=== PATIENT | female | born 1970 | race Hispanic/Latino ===

== ENCOUNTER 2018-04-30 05:58 | Outpatient (CLI) | payer OTHER ==
[2018-04-30 07:30] LABS: Blood Urea Nitrogen 14 mg/dL (7-17)
--- NOTE | 2018-04-30 13:26 | Cat Scan Report ---
FINAL REPORT EXAM: CT ABDOMEN PELVIS WO/W CON HISTORY: HX OF CHRONIC HEP C WITH ELEVATED LFT'S TECHNIQUE: CT of the abdomen and pelvis without and with IV contrast. Coronal and sagittal reconstru cted imaging provided. PRIORS: None currently available. FINDINGS: ABDOMEN: Liver: Heterogeneous decreased attenuation. No distinct lesion. No abnormal enhancement. Gallbladder, stomach, spleen, pancreas, and adrenals are unremarkable. Kidneys: No hydronephrosis. No nephroureteral stones. There is no abdominal aortic aneurysm. No dissection. IVC is unremarkable. There is no periaortic or retroperitoneal adenopathy or mass. [id number] stool. No wall thickening or inflammatory changes. Terminal ileum is unremarkable. The appendix is not identified. There are no pericecal inflammatory changes. Small bowel loops are unremarkable. No obstructive pattern. Mesentery is unremarkable. No free air. No free fluid. Fat-containing umbilical hernia without strangulation. PELVIS: Oval low-attenuation lesion in the left pelvis measures 3.[address] images of the uterus demonstrates a exophytic lesion off the right fundus measuring 2.2 cm . Bladder is unremarkable. There is no pelvic mass or adenopathy. Inguinal regions are unremarkable. Bones: No suspicious osseous lesions on this limited examination of the skeleton. Metastatic disease better evaluated with bone scan. IMPRESSION: Heterogeneous mild decreased attenuation the liver may represent hepatocellular disease or fatty infi ltration. No suspicious enhancement or lesion. Probable left ovary with ovarian cyst. Possible fibroid off the fundus of the uterus.
== END 2018-04-30 05:59 | disposition home or self-care (01) ==
LOC: CT 05:58
PROVIDERS: ATTEND Family Medicine
DX: K74.60 Unspecified cirrhosis of liver (principal); K42.9 Umbilical hernia without obstruction or gangrene; B18.2 Chronic viral hepatitis C
CPT/HCPCS: 36415; 74178; 82565; 84520; Q9967